=== PATIENT | female | born 1975 | race African-American/Black ===

== ENCOUNTER 2019-06-16 11:17 | Outpatient (CLI) | payer BC, SELFPAY ==
[2019-06-16 11:51] LABS: Hematocrit 36.3 % (37.0-47.0); Hemoglobin 11.5 g/dL (12.0-15.0); Mean Corpuscular HGB Conc 31.7 g/dl (32-36); Mean Corpuscular Hemoglobin 26.4 pg (26-34); Mean Corpuscular Volume 83.3 fl (80-100); Mean Platelet Volume 10.6 fl (7.4-10.4); Platelet Count Result 227 k/mm3 (150-375); Red Blood Count 4.36 M/mm3 (4.2-5.4); Red Cell Distribution Width 12.6 % (11.5-14.5); White Blood Count 4.8 K/mm3 (4.5-10.0)
[2019-06-16 12:00] LABS: Alanine Aminotransferase 12 U/L (4-35); Alkaline Phosphatase 50 U/L (38-126); Aspartate Amino Transferase 18 U/L (14-36); Bilirubin,Total 0.3 mg/dL (0.2-1.3); Blood Urea Nitrogen 12 mg/dL (7-17); Calcium 8.9 mg/dL (8.4-10.2); Carbon Dioxide 29 mmol/L (22-30); Chloride 104 mmol/L (98-107); Estimated Glomerular Filt Rate > 60; Glucose 100 mg/dL (65-105); Potassium 3.8 mmol/L (3.4-5.0); Sodium 141 mmol/L (137-145)
[2019-06-16 12:30] LABS: Thyroid Stimulating Hormone 0.734 uIU/mL (0.465-4.680)
[2019-06-16 12:31] LABS: Free T4 Free Thyroxine 0.82 ng/mL (0.78-2.19)
== END 2019-06-16 11:18 | disposition home or self-care (01) ==
PROVIDERS: Visit Provider Physician Assistant
DX: R53.83 Other fatigue (principal)
CPT/HCPCS: 36415; 80053; 84439; 84443; 85027